=== PATIENT | male | born 1975 | race Caucasian/White ===

== ENCOUNTER 2022-10-21 09:30 | Observation (INO) ==
--- NOTE | 2022-10-21 11:55 | EKG ---
Test Reason : CHEST PAIN Blood Pressure : */* mmHG Vent. Rate : 48 BPM Atrial Rate : 48 BPM P-R Int : 176 ms QRS Dur : 104 ms QT Int : 434 ms P-R-T Axes : 54 69 74 degrees QTc Int : 387 ms Sinus bradycardia Otherwise normal ECG No previous ECGs available Confirmed by Teja Martin (4) on 10/24/2022 2:44:47 PM Referred By: Confirmed By: Teja Martin
[2022-10-21 12:15] LABS: HEMOGLOBIN 15.9 g/dL (13.5-18.0); MEAN CORPUSCULAR HEMOGLOBIN 30.6 pg (27.0-34.0)
[2022-10-21 12:23] LABS: BASOPHILS % (AUTO) 0.6 % (0.2-1.0); EOSINOPHILS # (AUTO) 0.1 x10^3/uL (0.0-0.2); EOSINOPHILS % (AUTO) 2.2 % (0.9-2.9); HEMATOCRIT 45.6 % (42.0-54.0); LYMPHOCYTES # (AUTO) 1.9 X10^3/uL (1.3-2.9); LYMPHOCYTES % (AUTO) 29.8 % (21.0-51.0); MEAN CORPUSCULAR HGB CONC 34.8 g/dL (33.0-35.0); MEAN CORPUSCULAR VOLUME 87.9 fL (80.0-100.0); MEAN PLATELET VOLUME 8.9 fL (7.4-11.0); MONOCYTES # (AUTO) 0.5 x10^3/uL (0.3-0.8); MONOCYTES % (AUTO) 8.3 % (0.0-13.0); NEUTROPHILS # (AUTO) 3.9 x10^3/uL (2.2-4.8); NEUTROPHILS % (AUTO) 59.1 % (42.0-75.0); RED BLOOD COUNT 5.18 X10^6/uL (4.7-6.0); RED CELL DISTRIBUTION WIDTH 12.9 % (11.6-16.5); WHITE BLOOD COUNT 6.5 X10^3/uL (3.6-10.0)
[2022-10-21 12:35] LABS: ALANINE AMINOTRANSFERASE 49 Units/L (12-78); ALBUMIN 4.1 g/dL (3.4-5.0); ALKALINE PHOSPHATASE 85 Units/L (46-116); ASPARTATE AMINO TRANSFERASE 33 Units/L (15-37); BLOOD UREA NITROGEN 9 mg/dL (7-18); CALCIUM 8.6 mg/dL (8.5-10.1); CARBON DIOXIDE 32.4 mmol/L (21-32); CHLORIDE 104 mmol/L (98-107); CREATININE 0.79 mg/dL (0.70-1.30); FREE T4 (FREE THYROXINE) 0.82 ng/dL (0.76-1.46); MAGNESIUM 1.9 mg/dL (2.0-2.9); SODIUM 141 mmol/L (136-145); TOTAL PROTEIN 7.5 g/dL (6.4-8.2); TSH (3RD GENERATION) 1.402 uIU/mL (0.358-3.74); eGFR NON BLACK RACES > 60 (>60)
[2022-10-21 12:41] LABS: BILIRUBIN,URINE NEGATIVE (NEGATIVE); BLOOD/HEMOGLOBIN,URINE NEGATIVE (NEGATIVE); GLUCOSE, URINE NEGATIVE (NEGATIVE); KETONES,URINE NEGATIVE (NEGATIVE); LEUKOCYTE ESTERASE ,URINE 2+ (NEGATIVE); NITRITES,URINE NEGATIVE (NEGATIVE); PROTEIN,URINE NEGATIVE (NEGATIVE); UROBILINOGEN,URINE NORMAL (NORMAL)
[2022-10-21] MEDS: NS 1,000 ML IV 1,000 ML IV SCH ×2 (12:42→20:27)
[2022-10-21 12:45] LABS: APPEARANCE,URINE CLEAR (CLEAR); COLOR,URINE YELLOW (YELLOW)
[2022-10-21 12:48] LABS: RBC,URINE NONE SEEN /HPF (0-3)
[2022-10-21 12:49] LABS: BACTERIA,URINE NEGATIVE /HPF (NEGATIVE); SQUAMOUS EPITHELIAL CELL,UR RARE /HPF (NEGATIVE)
[2022-10-21] MEDS ORDERED: POTASSIUM CHL 60 MEQ/NS 0.45% 500 ML IV PRN (14:13)
[2022-10-21] MEDS ORDERED: POTASSIUM CHL 40 MEQ/NS 0.45% 500 ML IV PRN (14:13)
[2022-10-21] MEDS ORDERED: MAGNESIUM SULFATE 1 GRAM/100 mL PREMIX 1 G/100 ML BAG IV PRN (14:13)
[2022-10-21] MEDS ORDERED: POTASSIUM CHLORIDE LIQ 20 MEQ UDC PO PRN (14:13)
[2022-10-21] MEDS ORDERED: K-RIDER 10 MEQ/NS 100 ML 10 MEQ/100 ML BAG IV PRN (14:13)
[2022-10-21] MEDS ORDERED: KLOR-CON PO PRN (14:13)
[2022-10-21] MEDS ORDERED: MICRO K EXTEN CAP 10 MEQ PO PRN (14:13)
[2022-10-21] MEDS ORDERED: K-DUR TAB 20 MEQ PO PRN (14:13)
[2022-10-21] MEDS: MAGNESIUM SULFATE 1 GRAM/100 mL PREMIX 1 G/100 ML BAG IV PRN ×2 (14:40→17:50)
--- NOTE | 2022-10-21 15:41 | EKG ---
Test Reason : CHEST PAIN Blood Pressure : */* mmHG Vent. Rate : 52 BPM Atrial Rate : 52 BPM P-R Int : 172 ms QRS Dur : 112 ms QT Int : 430 ms P-R-T Axes : 36 70 73 degrees QTc Int : 399 ms Sinus bradycardia Otherwise normal ECG When compared with ECG of 21-OCT-2022 11:49, (Unconfirmed) No significant change was found Confirmed by Teja Martin (4) on 10/24/2022 2:40:51 PM Referred By: Confirmed By: Teja Martin
--- NOTE | 2022-10-21 19:28 | EKG ---
Test Reason : CHEST PAIN Blood Pressure : */* mmHG Vent. Rate : 50 BPM Atrial Rate : 50 BPM P-R Int : 184 ms QRS Dur : 110 ms QT Int : 418 ms P-R-T Axes : 39 65 65 degrees QTc Int : 381 ms Sinus bradycardia Otherwise normal ECG When compared with ECG of 21-OCT-2022 15:35, (Unconfirmed) No significant change was found Confirmed by Teja Martin (4) on 10/24/2022 2:40:16 PM Referred By: Confirmed By: Teja Martin
[2022-10-22] MEDS: NS 1,000 ML IV 1,000 ML IV SCH ×4 (00:13→21:00)
[2022-10-22 05:55] LABS: BASOPHILS % (AUTO) 0.5 % (0.2-1.0); EOSINOPHILS # (AUTO) 0.2 x10^3/uL (0.0-0.2); EOSINOPHILS % (AUTO) 2.8 % (0.9-2.9); HEMATOCRIT 43.9 % (42.0-54.0); HEMOGLOBIN 15.2 g/dL (13.5-18.0); MEAN CORPUSCULAR HEMOGLOBIN 30.7 pg (27.0-34.0); MEAN CORPUSCULAR HGB CONC 34.6 g/dL (33.0-35.0); MEAN CORPUSCULAR VOLUME 88.7 fL (80.0-100.0); MEAN PLATELET VOLUME 9.4 fL (7.4-11.0); MONOCYTES # (AUTO) 0.7 x10^3/uL (0.3-0.8); MONOCYTES % (AUTO) 9.1 % (0.0-13.0); NEUTROPHILS # (AUTO) 4.3 x10^3/uL (2.2-4.8); NEUTROPHILS % (AUTO) 59.6 % (42.0-75.0); RED BLOOD COUNT 4.95 X10^6/uL (4.7-6.0); RED CELL DISTRIBUTION WIDTH 13.2 % (11.6-16.5); WHITE BLOOD COUNT 7.2 X10^3/uL (3.6-10.0)
[2022-10-22 06:12] LABS: ALANINE AMINOTRANSFERASE 47 Units/L (12-78); ALBUMIN 3.4 g/dL (3.4-5.0); ALKALINE PHOSPHATASE 72 Units/L (46-116); ASPARTATE AMINO TRANSFERASE 22 Units/L (15-37); BLOOD UREA NITROGEN 9 mg/dL (7-18); CALCIUM 8.1 mg/dL (8.5-10.1); CARBON DIOXIDE 30.7 mmol/L (21-32); CHLORIDE 106 mmol/L (98-107); COR NA(FOR HYPERGLY) 140 mmol/L (136-145); CREATININE 0.76 mg/dL (0.70-1.30); MAGNESIUM 2.1 mg/dL (2.0-2.9); SODIUM 140 mmol/L (136-145); TOTAL PROTEIN 6.5 g/dL (6.4-8.2); eGFR NON BLACK RACES > 60 (>60)
--- NOTE | 2022-10-22 08:17 | RAD ---
HISTORYCHEST PAIN, SYMPTOMATIC BRADYCARDIA Relevant Clinical InformationSTUDYCHEST, PA/LAT ADULTCOMPARISONNone availableFINDINGSThe trachea is midline. The cardiac silhouette is unremarkable. The lungs are clear without focal infiltrate or effusion. The bony thorax is unremarkable.IMPRESSIONNo acute cardiopulmonary findings .Electronically signed by: Norma Castorena (Oct 22, 2022 08:16:01)
[2022-10-22 16:23] LABS: ABG ALLEN TEST POS; ABG BASE EXCESS 4.1 mmol/L (-2.0-2.0); ABG HCO3 29.2 mmol/L (22-26)
--- NOTE | 2022-10-22 23:36 | EKG ---
Test Reason : rai, bradycardia Blood Pressure : */* mmHG Vent. Rate : 53 BPM Atrial Rate : 53 BPM P-R Int : 158 ms QRS Dur : 108 ms QT Int : 420 ms P-R-T Axes : 44 76 73 degrees QTc Int : 394 ms Sinus bradycardia Otherwise normal ECG When compared with ECG of 21-OCT-2022 19:21, (Unconfirmed) No significant change was found Confirmed by Teja Martin (4) on 10/24/2022 2:38:19 PM Referred By: Confirmed By: Teja Martin
--- NOTE | 2022-10-23 00:12 | EKG ---
Test Reason : rai, bradycardia Blood Pressure : */* mmHG Vent. Rate : 52 BPM Atrial Rate : 52 BPM P-R Int : 156 ms QRS Dur : 114 ms QT Int : 426 ms P-R-T Axes : 46 75 70 degrees QTc Int : 396 ms Sinus bradycardia Otherwise normal ECG Confirmed by Teja Martin (4) on 10/24/2022 2:38:04 PM Referred By: Confirmed By: Teja Martin
[2022-10-23] MEDS: NS 1,000 ML IV 1,000 ML IV SCH (03:02)
--- NOTE | 2022-10-23 05:04 | EKG ---
Test Reason : rai, bradycardia Blood Pressure : */* mmHG Vent. Rate : 62 BPM Atrial Rate : 62 BPM P-R Int : 160 ms QRS Dur : 108 ms QT Int : 410 ms P-R-T Axes : 41 71 73 degrees QTc Int : 416 ms Normal sinus rhythm Normal ECG Confirmed by Teja Martin (4) on 10/24/2022 2:37:53 PM Referred By: Confirmed By: Teja Martin
[2022-10-23 06:01] LABS: BASOPHILS # (AUTO) 0.1 X10^3/uL (0.0-0.1); BASOPHILS % (AUTO) 0.6 % (0.2-1.0); EOSINOPHILS # (AUTO) 0.2 x10^3/uL (0.0-0.2); EOSINOPHILS % (AUTO) 2.6 % (0.9-2.9); HEMOGLOBIN 15.4 g/dL (13.5-18.0); LYMPHOCYTES # (AUTO) 2.2 X10^3/uL (1.3-2.9); LYMPHOCYTES % (AUTO) 24.7 % (21.0-51.0); MEAN CORPUSCULAR HEMOGLOBIN 30.9 pg (27.0-34.0); MEAN CORPUSCULAR VOLUME 88.2 fL (80.0-100.0); MEAN PLATELET VOLUME 9.3 fL (7.4-11.0); MONOCYTES # (AUTO) 0.6 x10^3/uL (0.3-0.8); MONOCYTES % (AUTO) 7.4 % (0.0-13.0); NEUTROPHILS # (AUTO) 5.6 x10^3/uL (2.2-4.8); NEUTROPHILS % (AUTO) 64.7 % (42.0-75.0); RED BLOOD COUNT 4.99 X10^6/uL (4.7-6.0); RED CELL DISTRIBUTION WIDTH 12.9 % (11.6-16.5); WHITE BLOOD COUNT 8.7 X10^3/uL (3.6-10.0)
[2022-10-23 06:38] LABS: ALANINE AMINOTRANSFERASE 43 Units/L (12-78); ALBUMIN 3.4 g/dL (3.4-5.0); ALKALINE PHOSPHATASE 76 Units/L (46-116); ASPARTATE AMINO TRANSFERASE 21 Units/L (15-37); BLOOD UREA NITROGEN 9 mg/dL (7-18); CALCIUM 8.4 mg/dL (8.5-10.1); CARBON DIOXIDE 28.9 mmol/L (21-32); CHLORIDE 105 mmol/L (98-107); COR NA(FOR HYPERGLY) 141 mmol/L (136-145); CREATININE 0.76 mg/dL (0.70-1.30); SODIUM 140 mmol/L (136-145); TOTAL PROTEIN 6.6 g/dL (6.4-8.2); eGFR NON BLACK RACES > 60 (>60)
[2022-10-23 07:52] VITALS: BP 138/81
== END 2022-10-23 11:11 | disposition home or self-care (01) ==
LOC: MED/SURG
PROVIDERS: ADMIT Internal Medicine; ATTEND Internal Medicine
DX: R79.89 Other specified abnormal findings of blood chemistry; R00.1 Bradycardia, unspecified